=== PATIENT | female | born 1995 | race Caucasian/White ===

== ENCOUNTER 2017-05-18 14:10 | Inpatient (IN) | payer OTHER ==
[~2017-05-18] VITALS: Ht 152.4 cm; Wt 83.9 kg
[2017-05-18 14:00] VITALS: BP 112/79
[~2017-05-18 14:10] MED LIST: DESFLURANE 240 ML BTL INH ONE; KETOROLAC 30 MG/ML VIAL ONE; ONDANSETRON 4 MG/2 ML VIAL ONE; PROPOFOL 200 MG/20 ML VIAL IV ONE; ROCURONIUM 50 MG/5 ML VIAL IV ONE
[2017-05-18] MEDS ORDERED: ACETAMINOPHEN 325 MG TAB PO PRN (14:55)
[2017-05-18 16:00] VITALS: BP 108/71
[2017-05-18] MEDS: NACL 0.9% 1,000 ML IV SCH (16:22)
[2017-05-18] MEDS: MORPHINE SULFATE 2 MG/ML SYR IVP PRN ×2 (16:28→21:07)
[2017-05-18] MEDS ORDERED: POTASSIUM CHLORIDE 20 MEQ, LIDOCAINE 1% 25 MG in NACL 0.9% 250 ML IV SCH (17:30)
[2017-05-18] MEDS: ONDANSETRON 4 MG/2 ML VIAL IVP PRN (22:19)
[2017-05-18] MEDS ORDERED: INFLUENZA VIRUS VACCINE QUAD 0.5 ML SYR IMVAC SCH (22:45)
[2017-05-19] VITALS (7 sets, daily range): BP systolic 92–120; BP diastolic 64–72
[2017-05-19] MEDS: NACL 0.9% 1,000 ML IV SCH ×3 (00:55→20:55)
[2017-05-19] MEDS: MORPHINE SULFATE 2 MG/ML SYR IVP PRN ×4 (01:29→23:00)
[2017-05-19 06:00] LABS: BASOPHILS # (AUTO) 0.4 K/uL (0.00-0.22); EOSINOPHILS # (AUTO) 0.3 K/uL (0-0.4); EOSINOPHILS % (AUTO) 2.6 % (0.0-4.0); HEMATOCRIT 33.9 % (36-48); HEMOGLOBIN 11.2 g/dL (12.0-16.0); LYMPHOCYTES # (AUTO) 4.2 K/uL (2.5-16.5); LYMPHOCYTES % (AUTO) 38.2 % (20.5-51.1); MEAN CORPUSCULAR HEMOGLOBIN 26 pg (27-31); MEAN CORPUSCULAR HGB CONC 33 g/dL (33-37); MEAN CORPUSCULAR VOLUME 80 fL (80-94); MONOCYTES # (AUTO) 0.4 K/uL (0.8-1.0); NEUTROPHILS # (AUTO) 5.7 K/uL (1.8-7.7); NEUTROPHILS % (AUTO) 51.2 % (42.2-75.2); PLATELET COUNT (AUTO) 398 K/uL (140-450); RED BLOOD CELL COUNT(AUTO) 4.24 MIL/uL (4.20-5.40); RED CELL DISTRIBUTION WIDTH 12.2 % (11.6-13.7)
[2017-05-19 07:08] LABS: ALBUMIN 2.8 g/dL (3.4-5.0); ANION GAP 12.5 (8-16); CARBON DIOXIDE 26.3 mmol/L (21-32); CREATININE 0.6 mg/dL (0.6-1.3); POTASSIUM 3.8 mmol/L (3.5-5.1); TOTAL BILIRUBIN 0.3 mg/dL (0.0-1.0)
[2017-05-19] MEDS ORDERED: fentaNYL 0.05 MG/ML VIAL ONE (10:39)
[2017-05-19] MEDS ORDERED: HYDROmorphone PFS 2 MG/ML SYR ONE ×2 (10:39→12:02)
[2017-05-19] MEDS: BUPIVACAINE-MPF 0.25% 30 ML VIAL INJ ONE ×2 (10:58→11:51)
[2017-05-19] MEDS ORDERED: ONDANSETRON 4 MG/2 ML VIAL IVP PRN (11:50)
[2017-05-19] MEDS: HYDROmorphone PFS 2 MG/ML SYR IVP PRN ×2 (12:05→12:15)
[2017-05-19] MEDS: ONDANSETRON 4 MG/2 ML VIAL IVP PRN (13:56)
[2017-05-19] MEDS: HYDROcodone/APAP 5/325 MG 1 TAB TAB PO PRN (20:18)
[2017-05-20] VITALS: BP 108/60
[2017-05-20] MEDS: HYDROcodone/APAP 5/325 MG 1 TAB TAB PO PRN ×4 (00:55→14:09)
[2017-05-20] MEDS: MORPHINE SULFATE 2 MG/ML SYR IVP PRN ×3 (03:12→12:03)
[2017-05-20 06:27] LABS: HEMATOCRIT 36.1 % (36-48); HEMOGLOBIN 11.8 g/dL (12.0-16.0); RED BLOOD CELL COUNT(AUTO) 4.56 MIL/uL (4.20-5.40); WHITE BLOOD COUNT (AUTO) 16.6 K/uL (4.8-10.8)
[2017-05-20 06:28] LABS: BASOPHILS % (AUTO) 0.2 % (0.0-2.0); EOSINOPHILS % (AUTO) 0.1 % (0.0-4.0); LYMPHOCYTES % (AUTO) 20.5 % (20.5-51.1); MEAN CORPUSCULAR HEMOGLOBIN 26 pg (27-31); MEAN CORPUSCULAR HGB CONC 33 g/dL (33-37); MEAN CORPUSCULAR VOLUME 79 fL (80-94); MONOCYTES % (AUTO) 3.5 % (1.7-9.3); NEUTROPHILS # (AUTO) 12.6 K/uL (1.8-7.7); NEUTROPHILS % (AUTO) 75.7 % (42.2-75.2); PLATELET COUNT (AUTO) 455 K/uL (140-450)
[2017-05-20 06:29] LABS: LYMPHOCYTES # (AUTO) 3.4 K/uL (2.5-16.5); MONOCYTES # (AUTO) 0.6 K/uL (0.8-1.0)
[2017-05-20 06:48] LABS: ALBUMIN 3.1 g/dL (3.4-5.0); ANION GAP 13.7 (8-16); CARBON DIOXIDE 25.9 mmol/L (21-32); CREATININE 0.7 mg/dL (0.6-1.3); POTASSIUM 3.6 mmol/L (3.5-5.1); TOTAL BILIRUBIN 0.2 mg/dL (0.0-1.0)
[2017-05-20] MEDS: NACL 0.9% 1,000 ML IV SCH ×2 (06:51→13:05)
[2017-05-20 08:00] VITALS: BP 102/64
[2017-05-20] MEDS: ONDANSETRON 4 MG/2 ML VIAL IVP PRN (13:15)
[2017-05-20] MEDS ORDERED: ACET-2869 PO (15:16)
== END 2017-05-20 15:55 | disposition home or self-care (01) | DRG 263 ==
LOC: MTU 14:10
PROVIDERS: ADMIT Hospitalist; ATTEND Hospitalist
PROC: 0FT44ZZ Resection of Gallbladder, Percutaneous Endoscopic Approach (ICD-10-PCS; principal; 2017-05-19 08:50)
DX: K80.00 Calculus of gallbladder with acute cholecystitis without obstruction (principal); E66.3 Overweight; F17.210 Nicotine dependence, cigarettes, uncomplicated; Z87.440 Personal history of urinary (tract) infections; Z68.36 Body mass index [BMI] 36.0-36.9, adult; Z71.6 Tobacco abuse counseling
CPT/HCPCS: 36415; 80053; 84703; 85025; 85610; 85730; 86870; 86886; 86900; 86901; 87081; 88304; J0696; J1170; J1885; J2001; J2270; J2405; J2704; J3010; J3480; J3490; J7030; J7060